=== PATIENT | female | born 1975 ===

== ENCOUNTER 2021-03-13 12:30 | Inpatient (IN) | payer OTHER ==
[~2021-03-13] VITALS: Ht 162.6 cm; Wt 81.6 kg
[~2021-03-13 12:30] MED LIST: PERCOCET 5/3251 TAB PO
[2021-03-15] MEDS ORDERED: CLOTRIMAZOLE-BE15 G1 (08:25)
== END 2021-03-17 12:51 | disposition home or self-care (01) | DRG 743 ==
LOC: O/R 03-14 07:18 → OB/GYN 03-14 07:18 → SURH 03-14 12:30 → OB/GYN 03-17 12:51
PROVIDERS: ADMIT Specialist; ATTEND Specialist
PROC: 0UT10ZZ Resection of Left Ovary, Open Approach (ICD-10-PCS; 2021-03-14)
PROC: 0UT60ZZ Resection of Left Fallopian Tube, Open Approach (ICD-10-PCS; 2021-03-14)
PROC: 0DNW0ZZ Release Peritoneum, Open Approach (ICD-10-PCS; 2021-03-14)
PROC: 0UT90ZZ Resection of Uterus, Open Approach (ICD-10-PCS; principal; 2021-03-14 15:30)
DX: D25.1 Intramural leiomyoma of uterus (principal); N72 Inflammatory disease of cervix uteri; N83.12 Corpus luteum cyst of left ovary; N83.292 Other ovarian cyst, left side; D23.9 Other benign neoplasm of skin, unspecified; N73.6 Female pelvic peritoneal adhesions (postinfective); N99.4 Postprocedural pelvic peritoneal adhesions